=== PATIENT | female | born 1940 | race Caucasian/White ===

== ENCOUNTER 2021-11-05 11:48 | Emergency (ER) | payer OTHER, BC ==
[2021-11-05 12:17] VITALS: BMI 22.3
[2021-11-05 15:35] LABS: INR 1.03 (0.83-1.09); PROTHROMBIN TIME (PATIENT) 11.9 SEC (9.7-13.0)
[2021-11-05 15:38] LABS: ACTIVATED PTT 30.1 SECONDS (25.2-36.5)
[2021-11-05 15:40] LABS: BASO % 0.9 % (0-2.0); EOS % 1.6 % (0-4.5); HEMATOCRIT 41.9 % (32.4-45.2); HEMOGLOBIN 13.8 GM/dL (10.7-15.3); LYMPH % 16.8 % (8-40); MCH 28.5 pg (25.7-33.7); MCHC 33.1 g/dl (32.0-36.0); MEAN CELL VOLUME 86.3 fl (80-96); MEAN PLT VOLUME 7.9 fl (7.5-11.1); MONO % 7.4 % (3.8-10.2); NEUT % 73.3 % (42.8-82.8); PLATELET COUNT 343 10^3/uL (134-434); RBC 4.86 M/mm3 (3.60-5.2); RDW 14.5 % (11.6-15.6); WHITE BLOOD COUNT 9.2 K/mm3 (4.0-10.0)
[2021-11-05 15:42] LABS: ALBUMIN 3.8 g/dl (3.4-5.0)
[2021-11-05 15:43] LABS: CALCIUM 9.3 mg/dL (8.5-10.1); MAGNESIUM 2.4 mg/dL (1.8-2.4)
[2021-11-05 15:44] LABS: BLOOD UREA NITROGEN 12.7 mg/dL (7-18)
[2021-11-05 15:48] LABS: BILIRUBIN,TOTAL 0.4 mg/dL (0.2-1)
[2021-11-05 18:13] LABS: EPI CELLS >36 /uL (0-25.1); HYALINE CASTS 0 /uL (0-3.1); PH,URINE 6.5 (5.0-8.0); URINE APPEARANCE CLEAR; URINE BACTERIA 159 /uL (0-1359); URINE BILIRUBIN NEGATIVE (NEGATIVE); URINE COLOR YELLOW; URINE GLUCOSE (UA) TRACE (NEGATIVE); URINE KETONE NEGATIVE (NEGATIVE); URINE LEUK ESTERASE TRACE (NEGATIVE); URINE NITRITE NEGATIVE (NEGATIVE); URINE PROTEIN NEGATIVE (NEGATIVE); URINE RBC 25 /uL (0-23.9); URINE UROBILINOGEN 0.2 mg/dL (0.2-1.0); URINE WBC 10 /uL (0-25.8)
[2021-11-05 20:11] VITALS: BP 133/78; PULSE 72; RESP 19; TEMP 98.6
== END 2021-11-05 20:11 | disposition home or self-care (01) ==
LOC: JER 11:48
DX: R63.0 Anorexia (principal)
CPT/HCPCS: 36415; 71045-TC-FY; 80053; 81003; 83735; 84484; 85025; 85610; 85730; 87086; 93005; 93010; 99285-25; C9803-CS; U0003; U0005